=== PATIENT | female | born 1965 ===

== ENCOUNTER 2017-01-06 12:18 | Emergency (ER) | payer OTHER ==
[2017-01-06 12:38] VITALS: PULSE 97; TEMP 99.1; O2SAT 99
[2017-01-06] MEDS ORDERED: Sodium Chloride 0.9% 1,000 ML IV ONE (13:10)
[2017-01-06 13:39] LABS: RBC URINE 2 /hpf (0-3); URINE BILIRUBIN NEGATIVE (NEGATIVE); URINE BLOOD NEGATIVE (NEGATIVE); URINE COLOR Yellow (YELLOW); URINE GLUCOSE (UA) NORMAL (Normal); URINE KETONE NEGATIVE (NEGATIVE); URINE LEUKOCYTE ESTERASE NEG Leu/uL (Negative); URINE PROTEIN NEGATIVE (NEGATIVE); URINE UROBILINOGEN NORMAL mg/dL (0.2-1.0); WBC URINE 1 /hpf (0-5)
[2017-01-06] MEDS ORDERED: Sodium Chloride 0.9% 1,000 ML ONE (13:43)
[2017-01-06 13:55] LABS: BASO % 0.7 % (0.0-2.0); EOS % 0.5 % (0.0-4.0); HEMATOCRIT 39.8 % (34.0-47.0); LYMPH # 2.4 K/uL (1.0-4.3); LYMPH % 36.2 % (20.0-40.0); MEAN CELL VOLUME 96.3 fL (81.0-99.0); MEAN CORPUSCULAR HEMOGLOBIN 32.8 pg (27.0-31.0); MEAN CORPUSCULAR HGB CONC 34.1 g/dL (33.0-37.0); MEAN PLATELET VOLUME 8.7 fL (7.2-11.7); MONO # 0.4 K/uL (0.0-0.8); MONO % 5.5 % (0.0-10.0); NRBC % 0.1 % (0.0-2.0); RED CELL DISTRIBUTION WIDTH 13.9 % (11.5-14.5); WHITE BLOOD COUNT 6.6 K/uL (4.8-10.8)
[2017-01-06 14:01] LABS: CHLORIDE 103 mmol/L (98-107)
[2017-01-06 14:02] LABS: POTASSIUM 3.9 mmol/L (3.6-5.2); SODIUM 139 mmol/L (132-148)
[2017-01-06 14:04] LABS: AST/SGOT 37 U/L (14-36); BILIRUBIN,TOTAL 0.7 mg/dL (0.2-1.3); CARBON DIOXIDE 27 mmol/L (22-30); GFR AFRICAN-AMERICAN > 60; TOTAL PROTEIN 8.9 g/dL (6.3-8.3)
[2017-01-06 14:05] LABS: ALKALINE PHOSPHATASE 110 U/L (38-126); ALT/SGPT 39 U/L (9-52); BLOOD UREA NITROGEN 6 mg/dL (7-17); CALCIUM 9.8 mg/dl (8.6-10.4); GLUCOSE,RANDOM 86 mg/dL (65-105)
[2017-01-06] MEDS ORDERED: Alum-Mag Hydrox-Simethicone Susp (30 mL) PO STA (14:19)
--- NOTE | 2017-01-06 14:22 | C.PDOC ---
Time Seen by Provider: 01/06/17 13:05 Chief Complaint (Nursing): Abdominal Pain History Per: Patient, Family Onset/Duration Of Symptoms: Days (about 3 weeks), Intermittent Episodes Current Symptoms Are (Timing): Still Present Severity: Moderate Location Of Pain/Discomfort: Epigastric Radiation Of Pain To:: None Quality Of Discomfort: Unable To Describe, "Pain" Associated Symptoms: Nausea Exacerbating Factors: Food Alleviating Factors: None Recent travel outside of the [place]: No Additional History Per: Prior Records Abnormal Vaginal Bleeding: No Past Medical History Reviewed: Historical Data, Nursing Documentation, Vital Signs Vital Signs: Last Vital Signs Temp 99.1 F 01/06/17 12:37 Pulse 97 H 01/06/17 12:37 Resp 18 01/06/17 12:37 BP 124/88 01/06/17 12:37 Pulse Ox 99 01/06/17 14:22 - Medical History PMH: No Chronic Diseases Family History: States: Unknown Family Hx - Social History Hx Alcohol Use: No Hx Substance Use: No - Immunization History Hx Tetanus Toxoid Vaccination: No Hx Influenza Vaccination: No Hx Pneumococcal Vaccination: No Review Of Systems Except As Marked, All Systems Reviewed And Found Negative. Constitutional: Negative for: Fever, Weakness Cardiovascular: Negative for: Chest Pain Respiratory: Negative for: Shortness of Breath Gastrointestinal: Positive for: Abdominal Pain. Negative for: Vomiting, Diarrhea, Constipation, Melena, Hematochezia, Hematemesis Musculoskeletal: Negative for: Neck Pain, Back Pain Skin: Negative for: Rash Neurological: Negative for: Weakness, Numbness Physical Exam - Physical Exam Appears: Non-toxic, No Acute Distress Skin: Normal Color, Warm, Dry, No Rash Head: Atraumatic, Normacephalic Eye(s): bilateral: Normal Inspection, PERRL, EOMI Neck: Normal ROM, Supple Cardiovascular: Rhythm Regular Respiratory: Normal Breath Sounds, No Accessory Muscle Use Gastrointestinal/Abdominal: Soft, Tenderness (mild epigastric), No Distention, No Guarding, No Rebound Back: No CVA Tenderness Extremity: Normal ROM Neurological/Psych: Oriented x3, Normal Motor, Normal Sensation ED Course And Treatment - Laboratory Results Result Diagrams: 01/06/17 13:49 01/06/17 13:49 Lab Interpretation: No Acute Changes Urine POC: Negative O2 Sat by Pulse Oximetry: 99 Pulse Ox Interpretation: Normal Reassessment Condition: Improved Progress - Interventions Interventions:: Observation, Intravenous fluid - Medications Administered Oral: Antacid Intravenous: Antiemetic, H-2 neo - Data Reviewed Data Reviewed: Lab, Old records - Patient Status Patient status: Mostly improved - Continuity of Care Discussed patient case with:: Patient, Family-HIPPA compliant, ED Nurse - Patient Plan Patient Plan: Discharge, F/U with PCP, Continue present meds Disposition Counseled Patient/Family Regarding: Studies Performed, Diagnosis, Need For Followup, Rx Given - Disposition Disposition: HOME/ ROUTINE Disposition Time: 15:03 Condition: IMPROVED Additional Instructions: Follow up with your doctor within 1 week for further evaluation and treatment. Return to the ER if you develop fever, vomiting, bloody or black stools, worsening of symptoms or if you have any other concerns. Prescriptions: Pantoprazole Sodium [Protonix] 40 mg PO DAILY #14 ect Instructions: Gastritis (ED) Forms: [facility] (Polish) Print Language: UPPER SORBIAN - Clinical Impression Clinical Impression: Epigastric abdominal pain
[2017-01-06] MEDS ORDERED: Alum-Mag Hydrox-Simethicone Susp (30 mL) ONE (14:32)
[2017-01-06 15:15] VITALS: BP 141/91; RESP 17
== END 2017-01-06 15:18 | disposition home or self-care (01) ==
LOC: C.ER 12:18
DX: R10.13 Epigastric pain (principal)
CPT/HCPCS: 80053; 81001; 83690; 84703; 85025; 96361; 96374; 96375; 99285; J2765; J7040

== ENCOUNTER 2017-04-02 13:05 | Emergency (ER) | payer OTHER ==
[2017-04-02 13:42] VITALS: RESP 20
--- NOTE | 2017-04-02 13:51 | C.PDOC ---
Time Seen by Provider: 04/02/17 13:27 Chief Complaint (Nursing): Abdominal Pain Past Medical History Vital Signs: Last Vital Signs Temp 102.6 F H 04/02/17 13:40 Pulse 128 H 04/02/17 13:35 Resp 20 04/02/17 13:35 BP 135/92 H 04/02/17 13:35 Pulse Ox 96 04/02/17 13:35 Family History: States: Unknown Family Hx - Social History Hx Alcohol Use: No Hx Substance Use: No - Immunization History Hx Tetanus Toxoid Vaccination: No Hx Influenza Vaccination: No Hx Pneumococcal Vaccination: No Physical Exam - Physical Exam Additional Physical Exam Comments: Constitutional: No acute distress. Head: Normocephalic. Atraumatic. Eyes: PERRL. ENT: Moist mucous membranes. Neck: Supple. Cardiovascular: Regular rate. Radial pulse 2+ bilaterally. Chest: No tenderness. Respiratory: Clear to auscultation bilaterally. GI: Soft. Nontender. Nondistended. Back: No CVA tenderness. Musculoskeletal: No tenderness to extremities. Bilateral lower leg swelling. Skin: No rash. Neurologic: Alert, no focal deficit. ED Course And Treatment O2 Sat by Pulse Oximetry: 96 Disposition - Disposition
[2017-04-02] MEDS ORDERED: Sodium Chloride 0.9% 1,000 ML IV STA ×2 (13:52→13:53)
--- NOTE | 2017-04-02 13:54 | C.PDOC ---
History Of Present Illness 51 y/o F c no PMHx p/w abdominal pain x 4 days. Pain is diffuse, nonradiating, intermittent, moderate in severity, associated with fever, nausea and NB diarrhea x 3 episodes per day. Denies chest pain, dyspnea, dysuria, vomiting, rash. Time Seen by Provider: 04/02/17 13:27 Chief Complaint (Nursing): Abdominal Pain Past Medical History Vital Signs: Last Vital Signs Temp 99.1 F 04/02/17 16:25 Pulse 99 H 04/02/17 16:25 Resp 20 04/02/17 16:25 BP 100/63 04/02/17 16:25 Pulse Ox 95 04/02/17 16:25 Family History: States: No Known Family Hx - Social History Hx Alcohol Use: No Hx Substance Use: No - Immunization History Hx Tetanus Toxoid Vaccination: No Hx Influenza Vaccination: No Hx Pneumococcal Vaccination: No Review Of Systems Except As Marked, All Systems Reviewed And Found Negative. Cardiovascular: Negative for: Chest Pain Respiratory: Negative for: Shortness of Breath Physical Exam - Physical Exam Additional Physical Exam Comments: Constitutional: No acute distress. Head: Normocephalic. Atraumatic. Eyes: PERRL. ENT: Moist mucous membranes. Neck: Supple. Cardiovascular: Radial pulse 2+ bilaterally. Tachycardic. Chest: No tenderness. Respiratory: Clear to auscultation bilaterally. GI: Soft. Nontender. Nondistended. Back: No CVA tenderness. Musculoskeletal: No tenderness to extremities. Skin: No rash. Neurologic: Alert, no focal deficit. ED Course And Treatment - Laboratory Results Result Diagrams: 04/02/17 14:40 04/02/17 14:40 O2 Sat by Pulse Oximetry: 96 Medical Decision Making Medical Decision Making: FINDINGS: LUNGS: No active pulmonary disease. PLEURA: No significant pleural effusion identified, no pneumothorax apparent. CARDIOVASCULAR: Normal. OSSEOUS STRUCTURES: No significant abnormalities. VISUALIZED UPPER ABDOMEN: Normal. OTHER FINDINGS: None. IMPRESSION: No active disease. No radiographic evidence of pneumonia. EKG Sinus rhythm, 110 bpm, no ST elevations, T wave inversions anterior. No old for comparison. IMPRESSION: Mild descending colitis versus sequela of chronic colitis. There is no signs of bowel structure. Normal appendix is seen. Uterus is surgically absent. Ovaries unremarkable. Moderate hepatic steatosis is seen. No obstructive uropathy is visualized. Patient will be discharged home on antibiotics for colitis which is consistent with patient's symptoms. Vitals normal, no lactic acidosis, no leukocytosis. Abdomen soft. Instructed to return to ED for worsening pain, fever, vomiting, dyspnea, or any other problem. Disposition - Disposition Disposition: HOME/ ROUTINE Disposition Time: 19:18 Condition: STABLE Prescriptions: levoFLOXacin [Levaquin] 1 tab PO DAILY #10 tab Metronidazole [Flagyl] 500 mg PO Q8 #30 tab Ondansetron ODT [Zofran ODT] 4 mg PO Q8 #12 odt Instructions: Colitis (ED) Forms: [facility] [employer] (Bangladeshi) - Clinical Impression Clinical Impression: Colitis
[2017-04-02] MEDS ORDERED: Sodium Chloride 0.9% 2,000 ML ONE (14:20)
[2017-04-02 14:50] LABS: VENOUS BLOOD GAS BASE EXCESS -2.3 mmol/L (0.0-2.0); VENOUS BLOOD GAS PCO2 33 mmHg (40-60); VENOUS BLOOD GAS PO2 27 mm/Hg (30-55); VENOUS BLOOD PH 7.42 (7.32-7.43)
[2017-04-02 14:51] LABS: BASO % 0.8 % (0.0-2.0); HEMOGLOBIN 13.7 g/dL (11.0-16.0); LYMPH # 0.9 K/uL (1.0-4.3); LYMPH % 18.2 % (20.0-40.0); MEAN CELL VOLUME 94.4 fL (81.0-99.0); MEAN CORPUSCULAR HEMOGLOBIN 32.8 pg (27.0-31.0); MEAN CORPUSCULAR HGB CONC 34.8 g/dL (33.0-37.0); MEAN PLATELET VOLUME 8.7 fL (7.2-11.7); MONO # 0.2 K/uL (0.0-0.8); MONO % 4.1 % (0.0-10.0); NEUT % 76.9 % (50.0-75.0); NRBC % 0.1 % (0.0-2.0); RBC 4.18 Mil/uL (3.80-5.20); RED CELL DISTRIBUTION WIDTH 13.9 % (11.5-14.5); WHITE BLOOD COUNT 5.2 K/uL (4.8-10.8)
[2017-04-02 15:02] LABS: INR 1.2; PROTHROMBIN TIME 13.7 SECONDS (9.7-12.2)
[2017-04-02 15:04] LABS: ALBUMIN 4.3 g/dL (3.5-5.0); ALT/SGPT 142 U/L (9-52); AST/SGOT 134 U/L (14-36); BLOOD UREA NITROGEN 13 mg/dL (7-17); CALCIUM 8.9 mg/dl (8.6-10.4); GFR AFRICAN-AMERICAN > 60; GFR NON-AFRICAN AMERICAN > 60; LIPASE 104 U/L (23-300); MAGNESIUM 1.9 mg/dL (1.6-2.3)
[2017-04-02 15:09] LABS: ALB/GLOB RATIO 1.1 (1.0-2.1); SQUAMOUS EPITHIAL 1 /hpf (0-5); URINE BACTERIA RARE (<OCC); URINE BILIRUBIN NEGATIVE (NEGATIVE); URINE BLOOD 1+ (NEGATIVE); URINE CLARITY Clear (Clear); URINE COLOR Yellow (YELLOW); URINE GLUCOSE (UA) NORMAL (Normal); URINE LEUKOCYTE ESTERASE NEG Leu/uL (Negative); URINE NITRATE NEGATIVE (NEGATIVE); URINE PROTEIN 1+ mg/dL (NEGATIVE); URINE UROBILINOGEN NORMAL mg/dL (0.2-1.0)
[2017-04-02 15:11] LABS: HCG,QUALITATIVE URINE NEGATIVE (NEGATIVE)
--- NOTE | 2017-04-02 15:22 | RAD ---
HISTORY: fever COMPARISON: No prior. FINDINGS: LUNGS: No active pulmonary disease. PLEURA: No significant pleural effusion identified, no pneumothorax apparent. CARDIOVASCULAR: Normal. OSSEOUS STRUCTURES: No significant abnormalities. VISUALIZED UPPER ABDOMEN: Normal. OTHER FINDINGS: None. IMPRESSION: No active disease. No radiographic evidence of pneumonia.
[2017-04-02] MEDS ORDERED: Iodixanol 320 MG/ML 100 ML BOTTLE IV ONE (16:45)
[2017-04-02 17:09] LABS: CK-MB < 0.22 ng/mL (0.0-3.38)
[2017-04-02 19:27] VITALS: BP 114/76; PULSE 86; TEMP 98.7; O2SAT 99
--- NOTE | 2017-04-02 19:30 | CT ---
PROCEDURE: CT Abdomen and Pelvis with contrast HISTORY: abd pain, vomiting COMPARISON: None. TECHNIQUE: Contrast dose: 100 mL Visipaque 320. Axial and reformatted coronal and sagittal CT images of the abdomen and pelvis were obtained after IV contrast administration. Radiation dose: Total exam DLP = 359.32 mGy-cm. This CT exam was performed using one or more of the following dose reduction techniques: Automated exposure control, adjustment of the mA and/or kV according to patient size, and/or use of iterative reconstruction technique. FINDINGS: LOWER THORAX: UnremarkableSmall bibasilar atelectasis are noted. The heart is mildly enlarged. . LIVER: The liver is mildly enlarged demonstrate moderate diffuse low-attenuation suggestive but nonspecific for moderate steatosis. GALLBLADDER AND BILE DUCTS: Unremarkable. PANCREAS: Unremarkable. No gross lesion or ductal dilatation. SPLEEN: Unremarkable. ADRENALS: Unremarkable. No mass. KIDNEYS AND URETERS: Unremarkable. No hydronephrosis. No solid mass. VASCULATURE: Unremarkable. No aortic aneurysm. BOWEL: Mild descending and sigmoid colon wall thickening suspicious for colitis. Few scattered colonic diverticulosis noted. Questionable mild stranding adjacent to the distal descending and proximal sigmoid colon. No evidence of bowel obstruction. APPENDIX: Normal appendix. PERITONEUM: Unremarkable. No free fluid. No free air. LYMPH NODES: Unremarkable. No enlarged lymph nodes. BLADDER: Unremarkable. REPRODUCTIVE: The patient is status post hysterectomy. The ovaries are normal in shape. BONES: No acute fracture. OTHER FINDINGS: None. IMPRESSION: Suspicious for descending and sigmoid colon wall thickening. Correlate clinically for colitis. Few scattered colonic diverticulosis noted and questionable mild stranding adjacent to the distal descending and proximal sigmoid colon which may represent diverticulitis. No evidence of free fluid or free air in the abdomen and pelvis. No evidence of abscess formation. No CT evidence of cholecystitis, pancreatitis or appendicitis. Mild hepatomegaly and moderate hepatic steatosis. Preliminary report was submitted by [facility]
--- NOTE | 2017-04-03 13:35 | CARD ---
APPROVED REPORT EKG Measurement Heart [id number] <Conclusion> Sinus tachycardia Possible Left atrial enlargement ST & T wave abnormality, consider anterolateral ischemia Abnormal ECG
== END 2017-04-02 19:26 | disposition home or self-care (01) ==
LOC: C.ER 13:05
DX: K52.9 Noninfective gastroenteritis and colitis, unspecified (principal)
CPT/HCPCS: 71045; 74177; 80053; 81001; 82550; 82553; 82803; 83690; 83735; 84100; 84484; 84703; 85025; 85610; 85730; 87040; 87086; 93005; 96361; 96374; 99285; J2405; J7040; Q9967

== ENCOUNTER 2017-10-31 13:36 | Emergency (ER) | payer OTHER ==
[2017-10-31 13:36] VITALS: BMI 18.8
[2017-10-31] MEDS ORDERED: Belladonna-Phenobarbital PO STA (14:25)
[2017-10-31] MEDS ORDERED: Lactated Ringer's 1,000 ML IVB ONE (14:26)
[2017-10-31 15:04] LABS: SQUAMOUS EPITHIAL 4 /hpf (0-5); URINE BILIRUBIN NEGATIVE (NEGATIVE); URINE BLOOD NEGATIVE (NEGATIVE); URINE CLARITY Hazy (Clear); URINE COLOR Yellow (YELLOW); URINE GLUCOSE (UA) NORMAL (Normal); URINE LEUKOCYTE ESTERASE TRACE Leu/uL (Negative); URINE PROTEIN NEGATIVE (NEGATIVE); URINE UROBILINOGEN NORMAL mg/dL (0.2-1.0)
[2017-10-31] MEDS ORDERED: Belladonna-Phenobarbital ONE (15:07)
[2017-10-31] MEDS ORDERED: Lactated Ringer's 1,000 ML ONE (15:07)
[2017-10-31 15:09] LABS: HEMOGLOBIN 13.4 g/dL (11.0-16.0); MEAN CELL VOLUME 97.6 fL (81.0-99.0); MEAN CORPUSCULAR HEMOGLOBIN 32.7 pg (27.0-31.0); MEAN CORPUSCULAR HGB CONC 33.5 g/dL (33.0-37.0); RBC 4.09 Mil/uL (3.80-5.20); RED CELL DISTRIBUTION WIDTH 13.9 % (11.5-14.5); WHITE BLOOD COUNT 6.2 K/uL (4.8-10.8)
[2017-10-31 15:10] LABS: BASO # 0.1 K/uL (0.0-0.2); EOS % 0.4 % (0.0-4.0); LYMPH # 1.9 K/uL (1.0-4.3); LYMPH % 30.8 % (20.0-40.0); MONO # 0.4 K/uL (0.0-0.8); MONO % 6.9 % (0.0-10.0); NEUT # 3.8 K/uL (1.8-7.0); NEUT % 60.9 % (50.0-75.0)
[2017-10-31 15:25] LABS: BLOOD UREA NITROGEN 8 mg/dL (7-17); GFR AFRICAN-AMERICAN > 60; GFR NON-AFRICAN AMERICAN > 60
[2017-10-31 15:26] LABS: ALB/GLOB RATIO 1.3 (1.0-2.1); ALBUMIN 4.7 g/dL (3.5-5.0); ALT/SGPT 47 U/L (9-52); AST/SGOT 38 U/L (14-36); CALCIUM 9.9 mg/dl (8.6-10.4); LIPASE 106 U/L (23-300)
--- NOTE | 2017-10-31 15:39 | C.PDOC ---
Time Seen by Provider: 10/31/17 14:13 Chief Complaint (Nursing): Abdominal Pain History Per: Patient Onset/Duration Of Symptoms: Days (about 2 weeks), Intermittent Episodes Current Symptoms Are (Timing): Still Present Severity: Moderate Location Of Pain/Discomfort: Epigastric, Periumbilical Radiation Of Pain To:: None Quality Of Discomfort: "Pain" Associated Symptoms: Nausea, Diarrhea (Loose stools), Loss Of Appetite Exacerbating Factors: Food Alleviating Factors: None Additional History Per: Prior Records Abnormal Vaginal Bleeding: No Past Medical History Reviewed: Historical Data, Nursing Documentation, Vital Signs Vital Signs: Last Vital Signs Temp 98.9 F 10/31/17 14:06 Pulse 98 H 10/31/17 14:06 Resp 20 10/31/17 14:06 BP 146/90 10/31/17 14:06 Pulse Ox 99 10/31/17 15:39 - Medical History PMH: HTN, Hypercholesterolemia Other Surgeries: Hysterectomy Family History: States: Unknown Family Hx - Social History Hx Alcohol Use: No Hx Substance Use: No - Immunization History Hx Tetanus Toxoid Vaccination: No Hx Influenza Vaccination: No Hx Pneumococcal Vaccination: No Review Of Systems Except As Marked, All Systems Reviewed And Found Negative. Constitutional: Negative for: Fever, Weakness Cardiovascular: Negative for: Chest Pain Respiratory: Negative for: Shortness of Breath Gastrointestinal: Negative for: Vomiting, Melena, Hematochezia, Hematemesis Musculoskeletal: Negative for: Neck Pain, Back Pain Skin: Negative for: Rash Neurological: Negative for: Weakness, Numbness Physical Exam - Physical Exam Appears: Non-toxic, No Acute Distress Skin: Normal Color, Warm, Dry, No Rash Head: Atraumatic, Normacephalic Eye(s): bilateral: Normal Inspection, PERRL, EOMI Oral Mucosa: Moist Neck: Normal ROM, Supple Cardiovascular: Rhythm Regular Respiratory: Normal Breath Sounds, No Accessory Muscle Use Gastrointestinal/Abdominal: Soft, Tenderness (mild, nonspecific), No Distention , No Guarding, No Rebound Back: No CVA Tenderness Extremity: Normal ROM Neurological/Psych: Oriented x3, Normal Motor, Normal Sensation ED Course And Treatment - Laboratory Results Result Diagrams: 10/31/17 14:53 10/31/17 14:53 Lab Interpretation: No Acute Changes O2 Sat by Pulse Oximetry: 99 Pulse Ox Interpretation: Normal Progress Note: Pt is tolerating PO in the ED. Reassessment Condition: Improved Progress - Interventions Interventions:: Observation, Intravenous fluid - Medications Administered Intravenous: Antiemetic, H-2 neo - Data Reviewed Data Reviewed: Lab, Old records - Patient Status Patient status: Mostly improved - Continuity of Care Discussed patient case with:: Patient, Family-HIPPA compliant, ED Nurse - Patient Plan Patient Plan: Discharge, F/U with PCP Disposition Counseled Patient/Family Regarding: Studies Performed, Diagnosis, Need For Followup, Rx Given - Disposition Referrals: Nahun Masterson MD [Medical Doctor] - Disposition: HOME/ ROUTINE Disposition Time: 16:15 Condition: IMPROVED Additional Instructions: Drink plenty of fluids. Follow up with your doctor for further evaluation and treatment. Return to the ER if you develop fever, vomiting, bloody stools, worsening of symptoms or if you have any other concerns. Prescriptions: Pantoprazole Sodium [Protonix] 40 mg PO DAILY #14 ect Instructions: Gastritis (DC) Forms: [facility] (Montserratian) Print Language: TANZANIAN - Clinical Impression Clinical Impression: Abdominal pain
[2017-10-31 16:37] VITALS: BP 146/87; PULSE 107; RESP 18; TEMP 98.1; O2SAT 100
== END 2017-10-31 16:42 | disposition home or self-care (01) ==
LOC: C.ER 13:36
DX: R10.13 Epigastric pain (principal)
CPT/HCPCS: 80053; 81001; 83690; 85025; 87086; 96374; 96375; 99285; J2765; J7120

== ENCOUNTER 2018-03-18 11:38 | Emergency (ER) | payer OTHER ==
[2018-03-18 11:38] VITALS: BMI 18.8
[2018-03-18 11:58] VITALS: BP 138/88; PULSE 111; RESP 18; TEMP 98.4; O2SAT 98
== END 2018-03-18 11:56 | disposition left against medical advice (07) ==
LOC: C.ER 11:38
DX: Z02.89 Encounter for other administrative examinations (principal); R10.9 Unspecified abdominal pain